=== PATIENT | female | born 1975 | race Asian ===

== ENCOUNTER → 2020-10-02 10:57 | Outpatient (CLI) | payer BC, SELFPAY ==
--- NOTE | ~2020-10-02 | MM_ITS ---
EXAMINATION: MM screening [facility] BI w lonnie HISTORY: Screening TECHNIQUE: Craniocaudal and mediolateral oblique 3-D tomosynthesis images were obtained and synthetic 2-D images were generated. CAD analysis was submitted and interpreted. COMPARISON: Comparison to multiple prior studies sequentially, with oldest reviewed study dated 12/2017. BREAST PARENCHYMAL COMPOSITION: The breasts are heterogeneously dense, which may obscure small masses . FINDINGS: There is no evidence of suspicious mass, calcification, or architectural distortion to sugg est malignancy in either breast. There has been no suspicious interval change. IMPRESSION: 1. No mammographic evidence of malignancy. 2. Recommend routine screening mammography in one year. BI-RADS Category 1: Negative Reviewed, dictated and finalized at location A. ATIONS SECTION MANAGER
== END ==
PROVIDERS: Visit Provider Nurse Practitioner
DX: Z12.31 Encounter for screening mammogram for malignant neoplasm of breast (principal)
CPT/HCPCS: 77063; 77067

== ENCOUNTER → 2021-08-17 15:29 | Outpatient (CLI) | payer BC, SELFPAY ==
--- NOTE | ~2021-08-17 | US_ITS ---
EXAMINATION: US transvaginal DATE: 08/17/2021 15:55 INDICATION: Abnormal uterine bleeding. Menorrhagia. Comparison:Ultrasound dated 12/30/2013 TECHNIQUE: Multiple transabdominal and endovaginal sonographic images of the pelvis performed. FINDINGS: The uterus measures 9.2 x 4.8 x 4.9 cm. The endometrial complex measures 4 mm. The right ovary measures 2.7 x 1.5 x 2 cm and the left ovary measures 3.2 x 2.1 x 3.4 cm. There is a 2.3 cm left ovarian cyst. There are small follicles in each ovary. Normal doppler signal in both ovar ies. There is no free fluid in the pelvis. There are no abnormal masses seen on either side. IMPRESSION: 1. Left ovarian cyst measuring 2.3 cm. Reviewed, dictated and finalized at location A.
== END ==
PROVIDERS: Visit Provider Nurse Practitioner
DX: N83.202 Unspecified ovarian cyst, left side (principal)
CPT/HCPCS: 76830

== ENCOUNTER → 2021-10-04 15:21 | Outpatient (CLI) | payer BC, SELFPAY ==
--- NOTE | ~2021-10-04 | MM_ITS ---
EXAMINATION: MM screening [facility] BI w lonnie HISTORY: Screening mammogram TECHNIQUE: Craniocaudal and mediolateral oblique 3-D tomosynthesis images were obtained and synthetic 2-D images were generated. CAD analysis was submitted and interpreted. COMPARISON: 10/02/2020, 07/05/2019, bilateral screening mammogram examinations BREAST PARENCHYMAL COMPOSITION: The breasts are heterogeneously dense, which may obscure small masses . FINDINGS: There is no evidence of suspicious mass, calcification, or architectural distortion to sugg est malignancy in either breast. There has been no suspicious interval change. IMPRESSION: 1. No mammographic evidence of malignancy. 2. Recommend routine screening mammography in one year. BI-RADS Category 1: Negative Reviewed, dictated and finalized at location A. BLANK MACHINE FEEDER
== END ==
PROVIDERS: Visit Provider Nurse Practitioner
DX: Z12.31 Encounter for screening mammogram for malignant neoplasm of breast (principal)
CPT/HCPCS: 77063; 77067

== ENCOUNTER → 2022-08-23 13:27 | Outpatient (CLI) | payer BC, SELFPAY ==
--- NOTE | ~2022-08-23 | US_ITS ---
EXAMINATION: US thyroid DATE: 08/23/2022 13:47 INDICATION: Nontoxic single thyroid nodule TECHNIQUE: Multiple ultrasound images of the thyroid were obtained. COMPARISON: None. FINDINGS: The right thyroid lobe measures 4.3 x 1.6 x 1.1 cm. The left thyroid lobe measures 3.5 x 1.3 x 1.1 c m. 1.2 cm wider than tall solid hypoechoic nodule with smooth margins and peripheral discontinuous e chogenic and subtly shadowing rim calcification (TI-RADS 4, moderately suspicious , FNA if >=1.5 cm, annual followup is >=1 cm) at the superior right thyroid lobe. There are 3 mm cystic TI RADS 1 nodule s in both the left and right thyroid lobes. Diffuse coarsened thyroid echotexture with diffuse increa sed vascular flow on color Doppler. IMPRESSION: 1. 1.2 cm BI-RADS 4 right thyroid nodule for which annual follow-up ultrasound would be recommended. 2. Diffuse increased vascular flow on color Doppler and coarsened echotexture throughout the thyroid which could be seen with thyroiditis. Reviewed, dictated and finalized at location A. IMPRESSION: 1. 1.2 cm BI-RADS 4 right thyroid nodule for which annual follow-up ultrasound would be recommended. 2. Diffuse increased vascular flow on color Doppler and coarsened echotexture t hroughout the thyroid which could be seen with thyroiditis.
== END ==
PROVIDERS: PCP Family Medicine; Visit Provider Nurse Practitioner
DX: E04.1 Nontoxic single thyroid nodule (principal)
CPT/HCPCS: 76536

== ENCOUNTER → 2022-10-31 14:06 | Outpatient (CLI) | payer BC, SELFPAY ==
--- NOTE | ~2022-10-31 | MM_ITS ---
EXAMINATION: MM screening [facility] BI w lonnie HISTORY: Screening mammogram TECHNIQUE: Craniocaudal and mediolateral oblique 3-D tomosynthesis images were obtained and synthetic 2-D images were generated. CAD analysis was submitted and interpreted. COMPARISON: 10/04/2021, 10/02/2020, 07/05/2019 BREAST PARENCHYMAL COMPOSITION: The breasts are heterogeneously dense, which may obscure small masses . FINDINGS: No suspicious mass, calcification, or architectural distortion are identified in either noam ast to suggest malignancy. There has been no suspicious interval change. IMPRESSION: 1. No mammographic evidence of malignancy. 2. Recommend routine screening mammography in one year. BI-RADS Category 1: Negative Reviewed, dictated and finalized at location A. STOCK FEEDER
== END ==
PROVIDERS: PCP Nurse Practitioner; Visit Provider Nurse Practitioner
DX: Z12.31 Encounter for screening mammogram for malignant neoplasm of breast (principal)
CPT/HCPCS: 77063; 77067

== ENCOUNTER → 2023-11-14 14:01 | Outpatient (CLI) | payer BC, SELFPAY ==
--- NOTE | ~2023-11-14 | MM_ITS ---
EXAMINATION: MM screening [facility] BI w lonnie HISTORY: Screening mammogram TECHNIQUE: Craniocaudal and mediolateral oblique 3-D tomosynthesis images were obtained and synthetic 2-D images were generated. CAD analysis was submitted and interpreted. COMPARISON: 10/31/2022, 10/04/2021, 10/02/2020 bilateral screening mammogram examinations BREAST PARENCHYMAL COMPOSITION: The breasts are heterogeneously dense, which may obscure small masses . FINDINGS: There is no evidence of suspicious mass, calcification, or architectural distortion to sugg est malignancy in either breast. There has been no suspicious interval change. IMPRESSION: 1. No mammographic evidence of malignancy. 2. Recommend routine screening mammography in one year. BI-RADS Category 1: Negative Reviewed, dictated and finalized at location A. AL CARE ATTENDANT
== END ==
PROVIDERS: PCP Nurse Practitioner; Visit Provider Nurse Practitioner
DX: Z12.31 Encounter for screening mammogram for malignant neoplasm of breast (principal)
CPT/HCPCS: 77063; 77067

== ENCOUNTER 2025-01-09 08:47 | Outpatient (CLI) | payer BC, SELFPAY ==
--- NOTE | ~2025-01-09 | MM_ITS ---
EXAMINATION: MM screening belen BI w lonnie HISTORY: Screening TECHNIQUE: Craniocaudal and mediolateral oblique 3-D tomosynthesis images were obtained and synthetic 2-D images were generated. CAD analysis was submitted and interpreted. COMPARISON: Comparison to multiple prior studies sequentially, with oldest reviewed study dated 12/2017. BREAST PARENCHYMAL COMPOSITION: Dense: The breasts are heterogeneously dense, which may obscure small masses FINDINGS: There is no evidence of suspicious mass, calcification, or architectural distortion to sugg est malignancy in either breast. There has been no suspicious interval change. IMPRESSION: 1. No mammographic evidence of malignancy. 2. Recommend routine screening mammography in one year. BI-RADS Category 1: Negative Reviewed, dictated and finalized at location [] E SHOW MANAGER
--- OUTSIDE RECORDS SUMMARY | 2025-01-09 08:57 | XMS_ITS | Encounter Summary ---
Author Organization [facility] Facility Care Team Providers Care Financial Services Specialist Name Role Phone Darryl French MD Primary Care Provider [phone] Raphael Baez Primary Care Provider [phone] Yuni Ortiz MD Unavailable [phone] Encounter Details Date Type Department Care Team (Latest Contact Info) Description 11/19/2018 Orders Only MMG CLINCONV Provider, MD Gonzalez [address] [place] [address] Social History Tobacco Use Types Packs/Day Years Used Date Smoking Tobacco: Never Assessed Comments Unknown Sex and Gender Information Value Date Recorded Sex Assigned at Not on file Legal Sex Female 7:37 PM RADIO REPAIRER DOMESTIC Gender Identity Not on file Sexual Orientation Not on file documented as of this encounter Plan of Treatment Not on file documented as of this encounter Procedures Procedure Name Priority Date/Time Associated Diagnosis Comments CARDIOLOGY REPORT 11/22/2018 12: 00 AM RADIO REPAIRER DOMESTIC documented in this encounter Results * CARDIOLOGY REPORT (11/22/2018 12:00 AM RADIO REPAIRER DOMESTIC) Anatomical Region Laterality Modality Other Narrative 11/22/2018 12:00 AM RADIO REPAIRER DOMESTIC Ordered by an unspecified provider. Historical Provider CV CARDIAC SERVICES MARIBETH NICOLE Final Result documented in this encounter Visit Diagnoses Not on filedocumented in this encounter Additional Health Concerns Infection Onset Date Last Indicated Resolved Time COVID: Suspected 05/04/2022 05/04/2022 05/04/2022 1:55 PM CDT COVID19 05/04/2022 05/04/2022 05/14/2022 3:06 AM CDT documented as of this encounter Care Teams Financial Services Specialist Relationship Specialty Start Date End Date Darryl French MD PCP - General Family Medicine 05/09/19 11/28/22 Raphael Baez PA PCP - General Family Medicine 11/29/22 Yuni Ortiz MD [address] [place] [id number] Consulting Physician Gastroenterology 12/04/23 documented as of this encounter
--- OUTSIDE RECORDS SUMMARY | 2025-01-09 08:57 | XMS_ITS | Referral Summary ---
Author Organization [facility] [place] [address] [facility] Address [address] [place] [address] Care Team Providers Care Senior Specialist Name Role Phone Raphael Baez Primary Care Provider [phone] Ynui Ortiz MD Unavailable [phone] Encounters Date Type Department Care Team Description 12/25/2024 8:30 AM CTRS Office Visit [facility] Family Medicine at [place] [address] [facility] [address] [place] [address] Raphael Baez PA Irritant contact dermatitis due to plants, except food (Primary Dx) from Last 3 Months Allergies No known active allergies Medications amLODIPine (NORVASC) 5 mg tabletIndications :Essential hypertension Take 1 tablet (5 mg total) by mouth daily 90 tablet 1 4 Active naproxen (NAPROSYN) 500 mg tabletIndications :Chronic midline low back pain without sciatica TAKE 1 TABLET(500 MG) BY MOUTH TWICE DAILY NEEDED FOR PAIN 30 tablet 4 Active predniSONE (DELTASONE) 20 mg tabletIndications :Irritant contact dermatitis due to plants, except food Take 2 tablets (40 mg) by mouth daily for 4 days 8 tablet 5 12/29/19 25 Active Problems Problem Noted Date Diagnosed Date Pulmonary nodule 11/02/2023 Assessment & Plan (11/02/2023 11:29 AM CTRS): Ct scan lung awaiting scheduling. Weight gain 08/03/2023 Assessment & Plan (11/02/2023 1:20 PM CTRS): DC Wegovy nearing goal Assessment & Plan (08/03/2023 11:38 AM CDT): Chronic persistent Not at goal Start wegovy Essential hypertension 03/02/2018 Assessment & Plan (11/02/2023 1:20 PM CTRS): Chronic stable well-controlled at goal Continue amlodipine Gastroesophageal reflux disease without esophagi tis 10/03/2017 MVP (mitral valve prolapse) 02/24/2016 Immunizations Name Administration Dates Next Due Influenza, Unspecified 08/13/2024,2022,08/11/2022,2020 MMR 11/05/1991 Pfizer SARS-CoV-2 Monovalent Vaccination (12+ Yrs) PURPLE 08/25/2021,01/13/2021,12/23/2020 Tdap 05/21/2021 Social History Tobacco Use Types Packs/Day Years Used Date Smoking Tobacco: Never Smokeless Tobacco: Never Tobacco Cessation:Counseling Given: Not Answered Alcohol Use Standard Drinks/Week Comments Yes 0 (1 standard drink = 0.6 oz pur e alcohol) on special ocassion only AUDIT-C Answer Date Recorded Q1: How often do you have a drink containing alc ohol? Monthly or less 12/25/2024 Q2: How many drinks containi ng alcohol do you have on a typical day when you are drinking? 1 or 2 12/25/2024 Q3: How often do you have si x or more drinks on one occasion? 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 on file No t on file Last Filed Vital Signs Vital Sign Reading Time Taken Comments Blood Pressure 138/68 12/25/2024 8:51 AM CTRS Pulse 77 12/25/2024 8:51 AM CTRS Temperature 36.6 C (97.8 F) 12/25/2024 8:51 AM CTRS Respiratory Rate 16 08/05/2024 10:10 AM CDT Oxygen Saturation 97% 12/25/2024 8:51 AM CTRS Inhaled Oxygen Concentration - - Weight 80.3 kg (177 lb) 12/25/2024 8:51 AM CTRS Height 165.1 cm (5' 5 ) 12/25/2024 8:51 AM CTRS Body Mass Index 29.45 12/25/2024 8:51 AM CTRS Plan of Treatment Not on file Procedures Procedure Name Priority Date/Time Associated Diagnosis Comments SCREENING MAMMOGRAM Schedule Routine, Read Routine (OP Routine) 11/14/2023 COLONOSCOPY Routine 11/02/2023 12:08 PM CTRS from Last 3 Months or Most Recently Relevant to Health Maintenance Results * Screening Mammogram (11/14/2023) Anatomical Region Laterality Modality Breast N/A Mammography Historical Provider MD IMG MAMMO PROCEDURES Paulina l Result * Colonoscopy (10/27/2023) Anatomical Region Laterality Modality Other us Historical Provider MD ENDOSCOPY PROCEDURES Paulina l Result from Last 3 Months or Most Recently Relevant to Health Maintenance Insurance [facility] [employer] Care Teams Senior Specialist Relationship Specialty Start Date End Date Raphael Baez PA PCP - General Family Medicine 11/29/22 Yuni Ortiz MD [address] [place] [address] Consulting Physician Gastroenterology 12/04/23
--- OUTSIDE RECORDS SUMMARY | 2025-01-09 08:57 | XMS_ITS | Clinical Summary ---
Author Organization [facility] [place] [address] [facility] Address [address] [place] [address] Care Team Providers Care Entry Clerk Name Role Phone Raphael Baez Primary Care Provider [phone] Yuni Ortiz MD Unavailable [phone] Allergies No known active allergies Medications amLODIPine [...] 11/02/2023 Assessment & Plan (11/02/2023 11:29 AM NURSE SPECIAL): Ct scan lung awaiting scheduling. Weight gain 08/03/2023 Assessment & Plan (11/02/2023 1:20 PM NURSE SPECIAL): DC Wegovy nearing goal Assessment & Plan (08/03/2023 11:38 AM CDT): Chronic persistent Not at goal Start wegovy Essential hypertension 03/02/2018 Assessment & Plan (11/02/2023 1:20 PM NURSE SPECIAL): Chronic stable well-controlled at goal Continue amlodipine Gastroesophageal reflux disease without esophagi tis 10/03/2017 MVP (mitral valve prolapse) 02/24/2016 Encounters Date Type Department Care Team Description 12/25/2024 8:30 AM NURSE SPECIAL Office Visit [facility] Family Medicine at [address] [place] [phone] Raphael Baez PA Irritant contact dermatitis due to plants, except food (Primary Dx) from Last 3 Months Immunizations Name Administration Dates Next Due Influenza, Unspecified 08/13/2024,2022,08/11/2022,2020 MMR 11/05/1991 Pfizer SARS-CoV-2 Monovalent Vaccination (12+ Yrs) PURPLE 08/25/2021,01/13/2021,12/23/2020 Tdap 05/21/2021 Surgical History Surgery Date Site/Laterality Comments CARPAL TUNNEL RELEASE Right ECTOPIC SURGERY Medical History Medical History Date Comments Hypertension MVP (mitral valve prolapse) Back pain Family History Medical History Relation Name Comments No Known Problems Daughter Glaucoma Father Heart disease Father No Known Problems Mother No Known Problems Son Relation Name Status Comments Daughter Alive Father Mother Alive Sister Alive Son Alive Social History Tobacco Use Types Packs/Day Years [...] on file Legal Sex Female 7:37 PM NURSE SPECIAL Gender Identity Not on file Sexual Orientation Not on file 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 on file No t on file Obstetrics History Last Filed Vital Signs Vital Sign Reading Time Taken Comments Blood Pressure 138/68 12/25/2024 8:51 AM NURSE SPECIAL Pulse 77 12/25/2024 8:51 AM NURSE SPECIAL Temperature 36.6 C (97.8 F) 12/25/2024 8:51 AM NURSE SPECIAL Respiratory Rate 16 08/05/2024 10:10 AM CDT Oxygen Saturation 97% 12/25/2024 8:51 AM NURSE SPECIAL Inhaled Oxygen Concentration - - Weight 80.3 kg (177 lb) 12/25/2024 8:51 AM NURSE SPECIAL Height 165.1 cm (5' 5 ) 12/25/2024 8:51 AM NURSE SPECIAL Body Mass Index 29.45 12/25/2024 8:51 AM NURSE SPECIAL Plan of Treatment Health Maintenance Due Date Last Done Comments Cervical Cancer Screening 1976 Hepatitis C Screening 1976 Hepatitis B Screening 1994 Covid-19 Vaccine ( season) 2024 09/15/2022, 08/25/2021, 01/13/2021, Additional history exists Breast Cancer Screening-Mammogram 11/14/2024 11/14/2023, 10/31/2022 Depression Screening 08/05/2025 08/05/2024, 06/07/2024, 06/07/2024, Additional history exists Regular Well Visit/Exam 18-64 08/05/2025 08/05/2024, 08/03/2023 Colon Cancer Screening-Colonoscopy 11/02/2028 11/02/2023, 10/27/2023, 07/25/2017 DTaP/Tdap/Td Vaccine (2 - Td or Tdap) 05/21/2031 05/21/2021 Colon Cancer Screening-CT Colonography Discontinued 11/02/2023, 10/27/2023, 07/25/2017 Colon Cancer Screening-DNA Stool Discontinued 11/02/2023, 10/27/2023, 07/25/2017 Colon Cancer Screening-FIT Discontinued 11/02, 10/27/2023, 07/25/2017 Colon Cancer Screening-Sigmoidoscopy Discontinued 11/02/2023, 10/27/2023, 07/25/2017 Influenza Vaccine Completed 08/13/2024, , 08/11/2022, Additional history exists Pneumococcal vaccine <65 Aged Out No longer eligible based on patient's age to complete this topic Procedures Procedure Name Priority Date/Time Associated Diagnosis Comments SCREENING MAMMOGRAM Schedule Routine, Read Routine (OP Routine) 11/14/2023 COLONOSCOPY Routine 11/02/2023 12:08 PM NURSE SPECIAL from Last 3 Months or Most Recently Relevant to Health Maintenance Results * Screening Mammogram (11/14/2023) Anatomical Region Laterality Modality Breast N/A Mammography us Historical Provider IMG MAMMO PROCEDURES Paulina l Result * Colonoscopy (10/27/2023) Anatomical Region Laterality Modality Other us Historical Provider ENDOSCOPY PROCEDURES Paulina l Result from Last 3 Months or Most Recently Relevant to Health Maintenance Insurance [facility] Member Subscriber Plan / Payer (Ef fective 2019-Present) Name:Eladia Wilson Relation to Subscriber:Self Name:Eladia Wilson Payer ID:[id number] ([facility]) Group ID:[id number] Type:SAMIR HOYT Address: [facility] [id number] [place] [id number] Care Teams Entry Clerk Relationship Specialty Start Date End Date Raphael Baez PA PCP - General Family Medicine 11/29/22 Yuni Ortiz MD [address] [address] Consulting Physician Gastroenterology 12/04/23
--- OUTSIDE RECORDS SUMMARY | 2025-01-09 08:57 | XMS_ITS | Clinical Summary ---
Author Organization [facility] Address [facility] [place] [address] Care Team Providers Care Die Sinking Machine Operator Name Role Phone Unavailable Primary Care Provider Unavailabl e Social History Tobacco Use Types Packs/Day Years Used Date Smoking Tobacco: Never Assessed Comments Unknown Sex and Gender Information Value Date Recorded Sex Assigned at Not on file Legal Sex Female 8:01 PM CDT Gender Identity Not on file Sexual Orientation Not on file Plan of Treatment Health Maintenance Due Date Last Done Comments Cervical Cancer Screening Pa p Smear (Age 30 to 64) Every 3 Years 1976 Colorectal Cancer Screening Colonoscopy (10 Years) 1976 Annual Physical 1979 Hepatitis C 1994 DTaP, Tdap and Td Vaccines ( 1 - Tdap) 1995 Hepatitis B Vaccines (1 of 3 - 19+ 3-dose series) 1995 Cervical Cancer Screening Pa p with HPV Testing (Age 30 to 64) Every 5 Years 2006 Cervical Cancer Screening with HPV 2006 Mammogram Screening 2016 COVID-19 Vaccine (2023-2 5 season) 2024 Influenza Adult (#1) 2024 Meningococcal B Vaccine Aged Out No l onger eligible based on patient's age to complete this topic Meningococcal Vaccine Aged Out No zarina jason eligible based on patient's age to complete this topic Pneumococcal Vaccine: Pediat rics (0 to 5 Years) and At-Risk Patients (6 to 64 Years) Aged Out No longer eligible b ased on patient's age to complete this topic RSV Immunizations Under 20 Months Aged Out No longer eligible based on patient's age to complete this topic
--- OUTSIDE RECORDS SUMMARY | 2025-01-09 08:57 | XMS_ITS | Encounter Summary ---
Author Organization [facility] Facility Care Team Providers Care Welder Railcar Mechanic Name Role Phone Darryl French MD Primary Care Provider [phone] Raphael Baez Primary Care Provider [phone] Yuni Ortiz MD Unavailable [phone] Encounter Details Date Type Department Care Team (Latest Contact Info) Description 08/25/2017 Orders Only MMG CLINCONV Provider, MD Gonzalez [address] [place] [address] Social History Tobacco Use Types Packs/Day Years Used Date Smoking Tobacco: Never Assessed Comments Unknown Sex and Gender Information Value Date Recorded Sex Assigned at Not on file Legal Sex Female 7:37 PM CARDIOLOGY COORDINATOR Gender Identity Not on file Sexual Orientation Not on file documented as of this encounter Plan of Treatment Not on file documented as of this encounter Procedures Procedure Name Priority Date/Time Associated Diagnosis Comments SCAN - PATHOLOGY 07/27/2017 12:0 0 AM CDT documented in this encounter Results * SCAN - PATHOLOGY (07/27/2017 12:00 AM CDT) Narrative 07/27/2017 12:00 AM CDT Ordered by an unspecified provider. Historical Provider Final Res ult documented in this encounter Visit Diagnoses Not on filedocumented in this encounter Additional Health Concerns Infection Onset Date Last Indicated Resolved Time COVID: Suspected 05/04/2022 05/04/2022 05/04/2022 1:55 PM CDT COVID19 05/04/2022 05/04/2022 05/14/2022 3:06 AM CDT documented as of this encounter Care Teams Welder Railcar Mechanic Relationship Specialty Start Date End Date Darryl French MD PCP - General Family Medicine 05/09/19 11/28/22 Raphael Baez PA PCP - General Family Medicine 11/29/22 Yuni Ortiz MD [address] [facility] [address] [place] [address] Consulting Physician Gastroenterology 12/04/23 documented as of this encounter
--- OUTSIDE RECORDS SUMMARY | 2025-01-09 08:57 | XMS_ITS | Encounter Summary ---
Author Organization [facility] Facility Care Team Providers Care Telephone Diaphragm Assembler Name Role Phone Darryl French MD Primary Care Provider [phone] Raphael Baez Primary Care Provider [phone] Yuni Ortiz MD Unavailable [phone] Encounter Details Date Type Department Care Team (Latest Contact Info) Description 01/16/2017 Orders Only MMG CLINCONV Provider, MD Gonzalez [address] [place] [address] Social History Tobacco Use Types Packs/Day Years Used Date Smoking Tobacco: Never Assessed Comments Unknown Sex and Gender Information Value Date Recorded Sex Assigned at Not on file Legal Sex Female 7:37 PM CREASING MACHINE OPERATOR Gender Identity Not on file Sexual Orientation Not on file documented as of this encounter Plan of Treatment Not on file documented as of this encounter Procedures Procedure Name Priority Date/Time Associated Diagnosis Comments SCAN - LABS 01/17/2017 12:00 AM CREASING MACHINE OPERATOR documented in this encounter Results * SCAN - LABS (01/17/2017 12:00 AM CREASING MACHINE OPERATOR) Narrative 01/17/2017 12:00 AM CREASING MACHINE OPERATOR Ordered by an unspecified provider. Historical Provider Final Res ult documented in this encounter Visit Diagnoses Not on filedocumented in this encounter Additional Health Concerns Infection Onset Date Last Indicated Resolved Time COVID: Suspected 05/04/2022 05/04/2022 05/04/2022 1:55 PM CDT COVID19 05/04/2022 05/04/2022 05/14/2022 3:06 AM CDT documented as of this encounter Care Teams Telephone Diaphragm Assembler Relationship Specialty Start Date End Date Darryl French MD PCP - General Family Medicine 05/09/19 11/28/22 Raphael Baez PA PCP - General Family Medicine 11/29/22 Yuni Ortiz MD [address] [facility] [address] [place] [address] Consulting Physician Gastroenterology 12/04/23 documented as of this encounter
--- OUTSIDE RECORDS SUMMARY | 2025-01-09 08:57 | XMS_ITS | Encounter Summary ---
Author Organization [facility] [place] [facility] Care Team Providers Care Er Physician Name Role Phone Darryl French MD Primary Care Provider [phone] Raphael Baez Primary Care Provider [phone] Yuni Ortiz MD Unavailable [phone] Encounter Details Date Type Department Care Team (Latest Contact Info) Description 07/25/2017 Orders Only [facility] CLINCONV Provider, MD Gonzalez [address] [place] [id number] Social History Tobacco Use Types Packs/Day Years Used Date Smoking Tobacco: Never Assessed Comments Unknown Sex and Gender Information Value Date Recorded Sex Assigned at Not on file 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 Historical Provider Final Res ult * COLONOSCOPY - SCAN (07/25/2017 12:00 AM CDT) Narrative 07/25/2017 12:00 AM CDT Ordered by an unspecified provider. us Historical Provider Final Res ult documented in this encounter Visit Diagnoses Not on filedocumented in this encounter Additional Health Concerns Infection Onset Date Last Indicated Resolved Time COVID: Suspected 05/04/2022 05/04/2022 05/04/2022 1:55 PM CDT COVID19 05/04/2022 05/04/2022 05/14/2022 3:06 AM CDT documented as of this encounter Care Teams Er Physician Relationship Specialty Start Date End Date Darryl French MD PCP - General Family Medicine 05/09/19 11/28/22 Raphael Baez PA PCP - General Family Medicine 11/29/22 Yuni Ortiz MD [address] [place] [address] [place] [id number] Consulting Physician Gastroenterology 12/04/23 documented as of this encounter
--- OUTSIDE RECORDS SUMMARY | 2025-01-09 08:57 | XMS_ITS | Encounter Summary ---
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 Name Role Phone Darryl French MD Primary Care Provider [phone] Raphael Baez Primary Care Provider [phone] Yuni Ortiz MD Unavailable [phone] Encounter Details Date Type Department Care Team (Latest Contact Info) Description 02/28/2018 Orders Only [facility] CLINCONV Provider, MD Gonzalez [address] [place] [id number] Social History Tobacco Use Types Packs/Day Years Used Date Smoking Tobacco: Never Assessed Comments Unknown Sex and Gender Information Value Date Recorded Sex Assigned at Not on file 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 us Historical Provider Final Res ult documented in this encounter Visit Diagnoses Not on filedocumented in this encounter Additional Health Concerns Infection Onset Date Last Indicated Resolved Time COVID: Suspected 05/04/2022 05/04/2022 05/04/2022 1:55 PM CDT COVID19 05/04/2022 05/04/2022 05/14/2022 3:06 AM CDT documented as of this encounter Care Teams Hydraulic Bull Riveter Operator Relationship Specialty Start Date End Date Darryl French MD PCP - General Family Medicine 05/09/19 11/28/22 Raphael Baez PA PCP - General Family Medicine 11/29/22 Yuni Ortiz MD [address] [facility] [address] [place] [id number] Consulting Physician Gastroenterology 12/04/23 documented as of this encounter
== END 2025-01-09 08:48 | disposition home or self-care (01) ==
PROVIDERS: PCP Nurse Practitioner; Visit Provider Nurse Practitioner
DX: Z12.31 Encounter for screening mammogram for malignant neoplasm of breast (principal)
CPT/HCPCS: 77063; 77067

== ENCOUNTER 2025-10-20 09:08 | Outpatient (CLI) | payer BC, SELFPAY ==
--- NOTE | ~2025-10-20 | MMUS_ITS ---
EXAMINATION: MM diagnostic belen LT w lonnie, US breast LT complete HISTORY: Discoloration of the left nipple. TECHNIQUE: Additional 3-D tomosynthesis images of the left were performed and synthetic 2-D images were generated. CAD analysis was submitted and interpreted. High resolution complete left breast ultrasound was performed. COMPARISON: 01/09/2025 BREAST PARENCHYMAL COMPOSITION: Dense: The breasts are heterogeneously dense, which may obscure small masses FINDINGS: MAMMOGRAPHIC FINDINGS: There are no suspicious masses, calcifications or architectural distortion in the left breast to suggest malignancy. No significant interval change. ULTRASOUND: Complete US of all 4 quadrants of the left breast/s and retroareolar region was reviewed. Normal heterogeneous echotexture without focal solid or cystic mass. No periareolar masses. IMPRESSION: 1. No evidence for malignancy in the left breast. 2. Routine yearly screening mammogram and regular clinical breast examination are recommended. BI-RADS Category 1: Negative Reviewed, dictated and finalized at location O. ER FITTER ARC IMPRESSION: 1. No evidence for malignancy in the left breast. 2. Routine yearly screening mammogram and regular clinical breast examination a re recommended. BI-RADS Category 1: Negative
== END 2025-10-20 09:09 | disposition home or self-care (01) ==
LOC: MICIMG 09:08
DX: N64.59 Other signs and symptoms in breast (principal)
CPT/HCPCS: 76641; 77061; 77065; G0279